=== PATIENT | male | born 1945 | race Caucasian/White ===

== ENCOUNTER 2021-03-24 17:10 | Emergency (ER) | payer MEDICARE ==
[2021-03-24] MEDS ORDERED: Ketorolac 30 MG/ML SDV IM ONE (17:37)
[2021-03-24] MEDS ORDERED: Take Home: Acetaminophen/HYDROcodone 325-5 MG, 5 Tab Pack PO ONE (17:37)
== END 2021-03-24 18:01 | disposition home or self-care (01) ==
LOC: VM.ED 17:10
DX: S46.012A Strain of muscle(s) and tendon(s) of the rotator cuff of left shoulder, initial encounter (principal); Z88.5 Allergy status to narcotic agent; Z79.82 Long term (current) use of aspirin; W19.XXXA Unspecified fall, initial encounter
CPT/HCPCS: 96372; 99283; A9270-GY; J1885

== ENCOUNTER 2021-03-25 15:09 | Emergency (ER) | payer MEDICARE ==
[2021-03-25] MEDS ORDERED: Sodium Chloride 0.9% 10 ML Syringe FLUSH PRN (15:17)
[2021-03-25] MEDS ORDERED: Naloxone 0.4 MG/ML SDV IVPUSH ONE (15:18)
[2021-03-25] MEDS ORDERED: Sodium Chloride 0.9% 1,000 ML IV ONE (15:29)
[2021-03-25 16:13] LABS: ANION GAP 15.8 mmol/L (5-15); CHLORIDE,CL 104 mmol/L (98-107); SODIUM,NA 139 mmol/L (136-145)
== END 2021-03-25 19:16 | disposition critical access hospital (66) ==
LOC: VM.ED 15:09 → UNDOADMIN 16:40 → VM.MS 16:40
DX: R41.0 Disorientation, unspecified (principal); R53.1 Weakness; Z88.5 Allergy status to narcotic agent; Z79.82 Long term (current) use of aspirin; Z20.822 Contact with and (suspected) exposure to COVID-19
CPT/HCPCS: 36415; 70450; 80053; 83605; 84484; 85025; 85610; 93010; 96374; 99284; 99285-25; J2310; J7030; U0002